=== PATIENT | female | born 1985 | race Caucasian/White ===

== ENCOUNTER 2017-02-01 17:10 | Emergency (ER) | payer BC, MEDICARE ==
[~2017-02-01] VITALS: Ht 162.6 cm; Wt 65.3 kg
[2017-02-01 17:37] VITALS: BP 114/70
--- NOTE | 2017-02-01 18:38 | NUR ---
31F BIB SELF C/O VAGINAL BLEEDING WITH CLOTTS X 2-3 HOURS PRIOR TO ARRIVAL TO ER TODAY; PT STATES BLEEDING IS THIN, RED, AND " A LOT IS COMING OUT" AT THIS TIME; PT STATES UTILIZING 1 PAD AT THIS TIME; PT C/O BL LOWER ABDOMINAL CRAMPING, RADIATES TO RT BACK, 2/10 AT THIS TIME; PT STATES NO N/V/D AT THIS TIME; ABDOMEN SOFT, NON-TENDER, ACTIVE BOWEL SOUNDS X 4 QUADRANTS; PT AA&OX4, PERRLA, BL LUNG SOUNDS CLEAR, RR EVEN/UNLABORED, SKIN IS WARM/DRY/INTACT AT THIS TIME; STEADY GAIT; PT STATES 8 WEEKS AT THIS TIME; PT RESTING IN BED WITH HOB ELEVATED AND IN LOWEST POSITION; POSITIONED FOR COMFORT; ER MD MADE AWARE OF STATUS. WILL CONTINUE TO MONITOR.
--- NOTE | 2017-02-01 18:45 | NUR ---
LAB AT BEDSIDE.
[2017-02-01 18:58] LABS: BASOPHILS # (AUTO) 0.7 K/uL (0.00-0.22); EOSINOPHILS # (AUTO) 0.2 K/uL (0-0.4); HEMATOCRIT 40.6 % (36-48); HEMOGLOBIN 13.4 g/dL (12.0-16.0); LYMPHOCYTES # (AUTO) 1.8 K/uL (2.5-16.5); MEAN CORPUSCULAR HEMOGLOBIN 30 pg (27-31); MEAN CORPUSCULAR HGB CONC 33 g/dL (33-37); MEAN CORPUSCULAR VOLUME 92 fL (80-94); MONOCYTES # (AUTO) 0.5 K/uL (0.8-1.0); NEUTROPHILS # (AUTO) 8.4 K/uL (1.8-7.7); PLATELET COUNT (AUTO) 285 K/uL (140-450); RED CELL DISTRIBUTION WIDTH 12.4 % (11.6-13.7); WHITE BLOOD COUNT (AUTO) 11.6 K/uL (4.8-10.8)
--- NOTE | 2017-02-01 19:05 | NUR ---
Pt report given to LINH RAHMAN. Transfer of care at this time.
--- NOTE | 2017-02-01 19:06 | NUR ---
Dr. Davis evaluating patient at bedside.
[2017-02-01 19:10] LABS: BILIRUBIN,URINE 1+ (NEGATIVE); BLOOD, URINE 3+ (NEGATIVE); LEUKOCYTE ESTERASE ,URINE NEGATIVE (NEGATIVE); NITRITE, URINE NEGATIVE (NEGATIVE); UGLUCOSE NEGATIVE (NEGATIVE)
[2017-02-01 19:19] LABS: APPEARANCE,URINE BLOODY (CLEAR); COLOR,URINE RED (YELLOW)
[2017-02-01 19:32] LABS: ANION GAP 11.9 (8-16); CARBON DIOXIDE 26.7 mmol/L (21-32); CREATININE 0.7 mg/dL (0.6-1.3); POTASSIUM 3.6 mmol/L (3.5-5.1)
[2017-02-01 19:33] LABS: RBC,URINE TOO NUMEROUS TO COUN /HPF (0-5); WBC,URINE NONE SEEN /HPF (0-5)
[2017-02-01 19:38] LABS: ALBUMIN 3.9 g/dL (3.4-5.0); TOTAL BILIRUBIN 0.3 mg/dL (0.0-1.0)
[2017-02-01 20:57] VITALS: BP 108/68
--- NOTE | 2017-02-01 20:57 | NUR ---
DPatient discharged with v/s stable. Written and verbal after care instructions given and explained. Patient verbalized understanding. Ambulatory with steady gait. All questions addressed prior to discharge. Advised to follow up with PMD.
== END 2017-02-01 20:57 | disposition home or self-care (01) ==
LOC: MED 17:10
DX: O20.0 Threatened abortion (principal)
CPT/HCPCS: 36415; 76817; 80053; 81001; 81025; 84702; 85025; 86900; 86901; 99285; Q0092

== ENCOUNTER 2018-09-15 04:17 | Emergency (ER) | payer MEDICAID ==
[~2018-09-15] VITALS: Ht 165.1 cm; Wt 68.0 kg
[2018-09-15 04:24] VITALS: BP 118/73
--- NOTE | 2018-09-15 04:27 | NUR ---
PT AMBULATED TO BED 9.
--- NOTE | 2018-09-15 04:39 | NUR ---
33/F PRESENTS TO ED, C/O CONSTANT THROBBING R EAR PAIN, RADIATING TO R FACE AND NECK, X2 DAYS. REPORTS INTERMITTENT NAUSEA. DENIES FEVER/CHILLS, VOMITING. AOX4, SKIN NORMAL WARM AND DRY, RR EVEN AND UNLABORED. DENIES MED HX, RX OR OTC.
[2018-09-15] MEDS ORDERED: KETOROLAC 60 MG/2 ML VIAL IM ONE (04:50)
[2018-09-15 05:36] VITALS: BP 113/68
--- NOTE | 2018-09-15 05:36 | NUR ---
Patient discharged with v/s stable. Written and verbal after care instructions given and explained. Patient alert, oriented and verbalized understanding of instructions. Ambulatory with steady gait. All questions addressed prior to discharge. ID band removed. Patient advised to follow up with PMD. Rx of Motrin and Cortisporin Otic Susp given. Patient educated on indication of medication including possible reaction and side effects. Opportunity to ask questions provided and answered.
== END 2018-09-15 05:36 | disposition home or self-care (01) ==
LOC: MED 04:17
DX: H60.91 Unspecified otitis externa, right ear (principal)
CPT/HCPCS: 96372; 99283; J1885

== ENCOUNTER 2019-04-29 10:08 | Emergency (ER) | payer MEDICAID ==
[~2019-04-29] VITALS: Ht 162.6 cm; Wt 67.1 kg
[2019-04-29 10:12] VITALS: BP 110/60
--- NOTE | 2019-04-29 10:19 | NUR ---
PATIENT AMBULATED WITH STEADY GAIT TO BED 6.
[2019-04-29] MEDS ORDERED: ACETAMINOPHEN EXTRA STRENGTH 500 MG TAB PO ONE (10:20)
--- NOTE | 2019-04-29 10:29 | NUR ---
FLU SWAB COLLECTED AND WALKED OVER TO LAB
--- NOTE | 2019-04-29 10:30 | NUR ---
C/O GENERALIZED BODY ACHES, FEVER, COUGH, N/V X 2 DAYS. PT REPORTS SICK CONTACTS AT HOME. TEMP AT THIS TIME 100.9. PT DENIES DIARRHEA. O2 SAT 98% RA, NO LABORED BREATHING/ACCESSORY MUSCLE USE NOTED. PT HAS AUDIBLE DRY COUGH. LUNG SOUNDS CAEBL. BED IN LOW POSITION, SIDE RAIL UP X1.
--- NOTE | 2019-04-29 10:50 | NUR ---
ERMD AT BEDSIDE
[2019-04-29 11:05] VITALS: BP 110/60
--- NOTE | 2019-04-29 11:05 | NUR ---
Patient discharged with v/s stable. Written and verbal after care instructions given and explained. Patient alert, oriented and verbalized understanding of instructions. Ambulatory with steady gait. All questions addressed prior to discharge. ID band removed. Patient advised to follow up with PMD. Rx of CORTISPORIN given. Patient educated on indication of medication including possible reaction and side effects. Opportunity to ask questions provided and answered.
== END 2019-04-29 11:05 | disposition home or self-care (01) ==
LOC: MED 10:08
DX: H66.91 Otitis media, unspecified, right ear (principal); M79.10 Myalgia, unspecified site; R50.9 Fever, unspecified
CPT/HCPCS: 87804; 99283